=== PATIENT | female | born 2000 | race Caucasian/White ===

== ENCOUNTER 2019-06-15 10:02 | Emergency (ER) | payer BC ==
--- NOTE | 2019-06-15 10:14 | EDM.PDOC ---
ED HPI GENERAL MEDICAL PROBLEM - General Chief Complaint: General Stated Complaint: SINUS PRESSURE Time Seen by Provider: 06/15/19 10:14 Source of Information: Reports: Patient History Limitations: Reports: No Limitations - History of Present Illness INITIAL COMMENTS - FREE TEXT/NARRATIVE: HISTORY AND PHYSICAL: History of present illness: Patient is a 18-year-old female presents to the ED with complaint of possible sinus infection. She states yesterday her eyes were tearing all day, she's had nasal congestion and a cough. She reports this morning she had some crusting to the right eye. She does not wear contacts and denies injury to the eye or eye pain. She denies fevers, chills, nausea ,vomiting, abdominal pain, chest pain, shortness of breath. She has taken mucinex without relief of symptoms. Review of systems: As per history of present illness and below otherwise all systems reviewed and negative. Past medical history: As per history of present illness and as reviewed below otherwise noncontributory. Surgical history: As per history of present illness and as reviewed below otherwise noncontributory. Social history: No reported history of drug or alcohol abuse. Family history: As per history of present illness and as reviewed below otherwise noncontributory. Physical exam: General: Patient sitting comfortably in no acute distress and nontoxic appearing HEENT: Conjunctiva are slightly injected with tearing and no purulence noted. Atraumatic, normocephalic, pupils reactive, negative for conjunctival pallor or scleral icterus, mucous membranes moist, throat clear, neck supple, nontender, trachea midline. No meningeal signs. Lungs: Clear to auscultation, breath sounds equal bilaterally, chest nontender. Heart: S1S2, regular, negative for clicks, rubs, or overt murmur. Abdomen: Soft, nondistended, nontender. Negative for masses or hepatosplenomegaly. Negative for costovertebral tenderness. No rigidity, rebound , guarding. Pelvis: Stable nontender. Genitourinary: Deferred. Rectal: Deferred. Extremities: Atraumatic, negative for cords or calf pain. Neurovascular unremarkable. Neuro: Awake, alert, oriented. Cranial nerves II through XII unremarkable. Cerebellum unremarkable. Motor and sensory unremarkable throughout. Exam nonfocal. Notes: Diagnostics: none Therapeutics: [] Prescriptions: Polytrim ophthalmic Impression: Conjunctivitis, URI Plan: Use drops as instructed Continue [id number] cold medications as discussed Follow up with primary care provider Return to ED as needed as discussed Definitive disposition and diagnosis as appropriate pending reevaluation and review of above. - Related Data Allergies Allergy/AdvReac Type Severity Reaction Status Date / Time No Known Allergies Allergy Verified 06/15/19 10:11 Home Meds: Home Meds Polymyxin B/Trimethoprim [PolyTrim Ophth Soln] 1 drop OP TID #1 bottle 06/15/19 [Rx] ED ROS GENERAL - Review of Systems Review Of Systems: ROS reveals no pertinent complaints other than HPI. ED EXAM, GENERAL - Physical Exam Exam: See Below (see dictation) Course - Vital Signs Last Recorded V/S: Last Vital Signs Temp 97.1 F 06/15/19 10:12 Pulse 130 H 06/15/19 10:12 Resp 16 06/15/19 10:12 BP 121/82 06/15/19 10:12 Pulse Ox 100 06/15/19 10:12 Departure - Departure Time of Disposition: 10:22 Disposition: Home, Self-Care 01 Condition: Good Clinical Impression: Conjunctivitis, URI (upper respiratory infection) - Discharge Information Prescriptions: Polymyxin B/Trimethoprim [PolyTrim Ophth Soln] 1 drop OP TID #1 bottle Referrals: PCP,None [Primary Care Provider] - Forms: ED Department Discharge Additional Instructions: The following information is given to patients seen in the emergency department who are being discharged to home. This information is to outline your options for follow-up care. We provide all patients seen in our emergency department with a follow-up referral. The need for follow-up, as well as the timing and circumstances, are variable depending upon the specifics of your emergency department visit. If you don't have a primary care physician on staff, we will provide you with a referral. We always advise you to contact your personal physician following an emergency department visit to inform them of the circumstance of the visit and for follow-up with them and/or the need for any referrals to a consulting specialist. The emergency department will also refer you to a specialist when appropriate. This referral assures that you have the opportunity for follow-up care with a specialist. All of these measure are taken in an effort to provide you with optimal care, which includes your follow-up. Under all circumstances we always encourage you to contact your private physician who remains a resource for coordinating your care. When calling for follow-up care, please make the office aware that this follow-up is from your recent emergency room visit. If for any reason you are refused follow-up, please contact the [facility] at and asked to speak to the emergency department charge nurse. [facility] [address] [place] [id number] [address] Use drops as instructed Continue [id number]-[id number] cold medications as discussed Follow up with primary care provider Return to ED as needed as discussed
== END 2019-06-15 10:42 | disposition home or self-care (01) ==
LOC: MW.ED 10:02
DX: J06.9 Acute upper respiratory infection, unspecified (principal); H10.9 Unspecified conjunctivitis
CPT/HCPCS: 99283

== ENCOUNTER 2019-07-23 11:40 | Day surgery (SDC) | payer BC, OTHER ==
[~2019-07-23 11:40] MED LIST: Sodium Chloride 0.9% 10 ML SDV IV PRN; Sodium Chloride 0.9% 10 ML Syringe FLUSH PRN; Sodium Chloride 0.9% 2.5 ML Syringe FLUSH PRN
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
[2019-07-23] MEDS ORDERED: Midazolam 1 MG/ML 2 ML SDV ONE (12:53)
[2019-07-23] MEDS ORDERED: Propofol 200 MG/20 ML SDV ONE (12:53)
[2019-07-23] MEDS ORDERED: fentaNYL 100 MCG/2 ML SDV ONE ×2 (12:53→14:01)
[2019-07-23] MEDS ORDERED: Ondansetron 4 MG/2 ML SDV ONE (12:55)
[2019-07-23] MEDS ORDERED: Dexamethasone 4 MG/ML 5 ML MDV ONE (12:55)
[2019-07-23] MEDS ORDERED: Methylergonovine 0.2 MG/1 ML Amp ONE (13:06)
[2019-07-23] MEDS ORDERED: Carboprost Tromethamine 250 MCG/1 ML Amp ONE (13:06)
[2019-07-23] MEDS ORDERED: Lactated Ringers 1,000 ML IV SCH (14:30)
--- NOTE | 2019-07-23 14:34 | PCM.OPNOTE ---
- General Post-Op/Procedure Note Date of Surgery/Procedure: 07/23/19 Operative Procedure(s): Suction D&C Findings: Suspected molar , products of conception Pre Op Diagnosis: Molar Post-Op Diagnosis: Same Anesthesia Technique: General LMA Primary Surgeon: Dang Alonso Pathology: products of conception Fluid Replacement, Intraop: 1,000 EBL in mLs: 1,200 Complications: none known Condition: Fair Free Text/Narrative:: Dictation [id number]
[2019-07-23] MEDS ORDERED: fentaNYL 100 MCG/2 ML SDV IVPUSH PRN (15:03)
--- NOTE | 2019-07-23 15:20 | OR ---
SURGEON: Dang Alonso M.D. DATE OF PROCEDURE: 07/23/2019 PREOPERATIVE DIAGNOSIS: Suspected molar . POSTOPERATIVE DIAGNOSIS: Suspected molar . PROCEDURE: Suction D and C. PRIMARY SURGEON: Dang Alonso MD. PLATE MILL MILL HAND: Kenrick Ng MS4. ANESTHESIA: General LMA. ESTIMATED BLOOD LOSS: 1200 mL. FLUIDS: 1000 mL of crystalloid, 1 unit packed red blood cell. COMPLICATIONS: None known. FINDINGS: Products of conception, suspicious for molar . DISPOSITION: The patient to PACU in fair condition. PROCEDURE DETAILS: Marialuisa is a 18-year-old, G1, P0, who was found to have an abnormal sonogram on her new OB appointment with heterogeneous thickened endometrium with multicystic layering, most consistent with molar . Quantitative HCG is abnormally elevated at 327,000. Given these findings, I have discussed with her this is most suspicious for molar and advising a surgical intervention in the form of D and C for treatment. She voiced her understanding to this. Questions were answered and proper consent was obtained. The patient was taken to the operating room where she underwent general LMA, was placed in modified dorsal lithotomy position, was prepped and draped in the usual sterile fashion. Bladder was drained. Time-out was performed. Speculum was introduced in the vagina. Anterior lip of the cervix was grasped with an Allis clamp. Using ultrasound guidance, after the cervix was gently dilated to 8 mm, an 8 mm curved curette was gently introduced to the fundus. Once again with ultrasound guidance, was able to evacuate the endometrial cavity of products of conception. There was a fair amount of dense tissue and blood loss is to be elevated as is expected with a molar . After I felt the cavity was adequately evacuated, blood loss appeared to be approximately 1200 mL. All instruments removed from the vagina and hemostasis does appear evident. Ultrasound was reassuring at this time. Instrument and sponge count is correct x 2. The patient's vital signs remained stable. Given the blood loss, however, and her small stature, we will proceed with 1 unit of packed red blood cell transfusion and also delivered 1 g of tranexamic acid. The patient will go to PACU to be observed in fair condition, specimen to pathology. AMIE / MARY /[id number] CORKY
--- NOTE | 2019-07-23 15:23 | PCM.POSTAN ---
POST ANESTHESIA ASSESSMENT - MENTAL STATUS Mental Status: Alert, Oriented - VITAL SIGNS Vital Signs: Last Vital Signs Temp 37.1 C 07/23/19 11:55 Pulse 68 07/23/19 15:17 Resp 15 07/23/19 15:17 BP 112/62 07/23/19 15:17 Pulse Ox 98 07/23/19 15:17 - RESPIRATORY Respiratory Status: Respiratory Rate WNL, Airway Patent, O2 Saturation Stable - CARDIOVASCULAR CV Status: Pulse Rate WNL, Blood Pressure Stable - GASTROINTESTINAL GI Status: No Symptoms - PAIN Pain Score: 0 - POST OP HYDRATION Hydration Status: Adequate & Stable - OBSERVATIONS Free Text/Narrative:: recieved 1 unit of PRBC in PACU. VSS Room air. 118/62, 98%, 67
[2019-07-23] MEDS ORDERED: Ketorolac 30 MG/ML SDV IVPUSH ONE (16:42)
[2019-07-23] MEDS ORDERED: Ketorolac 30 MG/ML SDV ONE (16:45)
--- NOTE | 2019-07-23 17:10 | PCM48HPAN ---
Post Anesthesia Note - EVALUATION WITHIN 48HRS OF ANESTHETIC Vital Signs in Normal Range: Yes Patient Participated in Evaluation: Yes Respiratory Function Stable: Yes Airway Patent: Yes Cardiovascular Function Stable: Yes Hydration Status Stable: Yes Pain Control Satisfactory: Yes Nausea and Vomiting Control Satisfactory: Yes Mental Status Recovered: Yes Vital Signs: Last Vital Signs Temp 37.0 C 07/23/19 15:49 Pulse 81 07/23/19 16:50 Resp 16 07/23/19 16:50 BP 132/71 07/23/19 16:50 Pulse Ox 100 07/23/19 16:50
[2019-07-23] MEDS ORDERED: Acetaminophen/oxyCODONE 325-5 MG Tab PO PRN (17:41)
== END 2019-07-23 21:15 | disposition home or self-care (01) ==
LOC: MW.SDS 11:40 → MW.MS 16:37 → MW.SDS 21:15
PROVIDERS: ATTEND Obstetrics & Gynecology
DX: O01.9 Hydatidiform mole, unspecified (principal); Z87.891 Personal history of nicotine dependence
CPT/HCPCS: 36415; 36430; 59870; 84443; 85014; 85018; 85027; 86850; 86900; 86901; 88233; 88305; A9270; J1100; J1885; J2001; J2250; J2405; J2704; J3010; J7120; P9016; 01965